=== PATIENT | female | born 1965 | race Caucasian/White ===

== ENCOUNTER 2021-06-29 21:29 | Emergency (ER) | payer SELFPAY ==
[2021-06-29] MEDS ORDERED: NAPROSYN500 MG PO (23:14)
== END 2021-06-30 00:32 | disposition home or self-care (01) ==
LOC: ED 21:29
DX: S60.211A Contusion of right wrist, initial encounter (principal); Z88.0 Allergy status to penicillin; Z88.2 Allergy status to sulfonamides; W18.39XA Other fall on same level, initial encounter; Y93.89 Activity, other specified; Y92.89 Other specified places as the place of occurrence of the external cause; Y99.8 Other external cause status

== ENCOUNTER 2021-07-29 14:03 | Emergency (ER) | payer SELFPAY ==
[~2021-07-29] VITALS: Wt 86.2 kg
[~2021-07-29 14:03] MED LIST: NAPROSYN500 MG PO
[2021-07-29] MEDS ORDERED: HYDROCODONE-AC1 EAC1 PO (20:01)
== END 2021-07-29 19:54 | disposition home or self-care (01) ==
LOC: ED 14:03
DX: S62.101A Fracture of unspecified carpal bone, right wrist, initial encounter for closed fracture (principal); W01.0XXA Fall on same level from slipping, tripping and stumbling without subsequent striking against object, initial encounter; Y93.89 Activity, other specified; Y92.89 Other specified places as the place of occurrence of the external cause; Y99.8 Other external cause status

== ENCOUNTER → 2023-03-15 | Outpatient (CLI) | payer OTHER ==
[~2023-03-15] MED LIST changes: +HYDROCODONE-AC1 EAC1 PO
== END | disposition home or self-care (01) ==
LOC: RAD 09:42
PROVIDERS: ATTEND Nurse Practitioner Family
DX: J10.1 Influenza due to other identified influenza virus with other respiratory manifestations (principal); J18.9 Pneumonia, unspecified organism

== ENCOUNTER 2024-03-26 15:46 | Emergency (ER) | payer OTHER ==
[~2024-03-26] VITALS: Ht 160 cm
[2024-03-26 16:06] LABS: BILIRUBIN Negative (Negative); BLOOD 3+ (Negative); CLARITY Cloudy (Clear); COLOR Orange (Yellow); GLUCOSE Negative (Negative); KETONE Trace (Negative); LEUKO ESTERASE 1+ (Negative); NITRITE Negative (Negative); PH 5.5 (4.5-8.0); SPECIFIC GRAVITY 1.025 (1.001-1.030)
[2024-03-26 16:15] LABS: RBC TNTC rbc/hpf (0-2)
[2024-03-26] MEDS ORDERED: SODIUM CHLORIDE 0.9% 1,000 ML IV ONE (16:30)
[2024-03-26 16:45] LABS: BASO % 0.3 % (0.0-1.0); EOS # 0.1 10*3/uL (0.0-0.4); EOS % 0.7 % (1.0-4.0); HEMATOCRIT 46.4 % (37.0-47.0); LYMPH # 1.5 10*3/uL (1.3-4.4); LYMPH % 19.8 % (27.0-41.0); MEAN CELL VOLUME 90.8 fl (81.0-99.0); MEAN CORPUSCULAR HGB 29.2 pg (27.0-31.0); MEAN CORPUSCULAR HGB CONC 32.1 g/dl (33.0-37.0); MEAN PLATELET VOLUME 9.2 fl (9.6-12.3); MONO # 0.5 10*3/uL (0.1-1.0); MONO % 6.8 % (3.0-9.0); NEUT # 5.5 10*3/uL (2.3-7.9); NEUT % 72.1 % (47.0-73.0); PLATELET COUNT AUTOMATED 271 10*3/uL (130-400); RED BLOOD COUNT 5.11 10*6/uL (4.10-5.10); RED CELL DISTRI WIDTH 12.6 % (0-14.5); WHITE BLOOD COUNT 7.7 10*3/uL (4.8-10.8)
[2024-03-26 17:07] LABS: ALKALINE PHOSPHATASE 63 U/L (46-116); BUN 11 mg/dl (9-23); CHLORIDE 108 mmol/L (98-107); LIPASE 42 U/L (12-53); POTASSIUM 4.2 mmol/L (3.4-5.1); SGPT/ALT 16 U/L (5-49); TOTAL PROTEIN 7.4 gm/dL (6.0-8.0)
[2024-03-26] MEDS ORDERED: Ketorolac Tromethamine 15 MG/ML VIAL IV ONE (17:35)
[2024-03-26] MEDS ORDERED: HYDROCODONE-AC1 EAC1 PO ×2 (18:36→18:38)
[2024-03-26] MEDS ORDERED: Ondansetron4 MG PO (18:36)
== END 2024-03-26 18:54 | disposition home or self-care (01) ==
LOC: ED 15:46
PROVIDERS: Emergency Medicine; Nurse Practitioner
DX: N20.1 Calculus of ureter (principal); Z88.0 Allergy status to penicillin; Z88.2 Allergy status to sulfonamides; Z88.5 Allergy status to narcotic agent; Z88.1 Allergy status to other antibiotic agents; Z90.711 Acquired absence of uterus with remaining cervical stump